=== PATIENT | male | born 1945 | race Caucasian/White ===

== ENCOUNTER 2023-04-07 08:30 | Day surgery (SDC) | payer MEDICARE ==
[2023-04-07] MEDS: Sodium Chloride 0.9% 10 ML Syringe FLUSH SCH (09:15)
== END 2023-04-07 10:25 | disposition home or self-care (01) ==
LOC: JP.SDS 08:30
PROVIDERS: ATTEND Ophthalmology
DX: H26.9 Unspecified cataract (principal)
CPT/HCPCS: J3490; V2632